=== PATIENT | male | born 1930 | race African-American/Black ===

== ENCOUNTER 2018-04-03 23:24 | Emergency (ER) | payer BC, MEDICARE ==
[~2018-04-03] VITALS: Ht 182.9 cm; Wt 80.0 kg
[2018-04-04] MEDS ORDERED: SODIUM CHLORIDE 0.9% 500 ML IV ONE (01:30)
[2018-04-04 05:37] LABS: BASOPHILS % 0.7 % (0.0-2.0); EOSINOPHILS % 1.8 % (0.0-5.0); HEMATOCRIT. 32.3 % (42.0-52.0); HEMOGLOBIN. 10.4 g/dL (14.0-18.0); LYMPHOCYTES % 28.6 % (20.0-50.0); MEAN CORPUSCULAR HEMOGLOBIN 31.1 pg (28.0-32.0); MEAN CORPUSCULAR VOLUME 96.9 fL (80.0-94.0); MEAN PLATELET VOLUME 9.7 fl (7.4-10.4); MONOCYTES % 12.4 % (2.0-8.0); NEUTROPHILS % 56.5 % (40.0-76.0); PLATELET 133 x1000/uL (130-400); RED BLOOD CELL COUNT 3.34 mill/uL (4.7-6.1); RED CELL DISTRIBUTION WIDTH 14.1 % (11.6-14.6)
[2018-04-04 05:45] LABS: CHLORIDE 104 mEq/L (98-107)
[2018-04-04 07:30] VITALS: BP 156/57
== END 2018-04-04 08:48 | disposition home or self-care (01) ==
LOC: ER 23:24
DX: M48.02 Spinal stenosis, cervical region (principal); M54.12 Radiculopathy, cervical region; I50.9 Heart failure, unspecified; E11.9 Type 2 diabetes mellitus without complications; N28.9 Disorder of kidney and ureter, unspecified; I45.10 Unspecified right bundle-branch block
CPT/HCPCS: 36415; 72125; 80053; 83880; 84484; 85025; 93005; 99284; J7040